=== PATIENT | female | born 1995 | race Caucasian/White ===

== ENCOUNTER 2022-06-07 10:27 | Emergency (ER) | payer OTHER ==
[~2022-06-07] VITALS: Ht 165.1 cm; Wt 57.2 kg
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
[2022-06-07] MEDS ORDERED: OLANZAPINE 10 MG VIAL IM ONE ×2 (11:00→11:02)
[2022-06-07] MEDS ORDERED: LORAZEPAM INJ 2 MG/ML VIAL IM ONE (11:00)
[2022-06-07] MEDS ORDERED: diphenhydrAMINE HCL 50 MG/ML VIAL IM ONE (11:00)
--- NOTE | 2022-06-07 11:00 | NUR ---
PT CANNOT PROVIDE URINE AT THIS TIME AND REFUSING CATHETER.
[2022-06-07] MEDS ORDERED: LORAZEPAM INJ 2 MG/ML VIAL ONE (11:02)
[2022-06-07] MEDS ORDERED: diphenhydrAMINE HCL 50 MG/ML VIAL ONE (11:02)
--- NOTE | 2022-06-07 11:04 | NUR ---
CRISIS PRIYANKA AT BEDSIDE
--- NOTE | 2022-06-07 11:20 | NUR ---
YUKO TERRAZAS [phone]
[2022-06-07 11:33] LABS: BASOPHILS # (AUTO) 0.1 K/uL (0.0-0.2); BASOPHILS % (AUTO) 1.4 % (0.0-2.0); EOSINOPHILS % (AUTO) 2.7 % (0.0-6.0); HEMATOCRIT 40 % (33-45); HEMOGLOBIN 13.3 g/dL (11.5-14.8); LYMPHOCYTES # (AUTO) 1.8 K/uL (0.8-4.8); MEAN CORPUSCULAR HGB CONC 33 g/dl (31.0-36.0); MEAN CORPUSCULAR VOLUME 91 fL (82-100); MONOCYTES # (AUTO) 0.3 K/uL (0.1-1.30); NEUTROPHILS # (AUTO) 1.6 K/uL (1.8-8.9); NEUTROPHILS % (AUTO) 42.9 % (43.0-81.0); PLATELET COUNT (AUTO) 245 K/uL (150-450); RED BLOOD CELL COUNT(AUTO) 4.42 MIL/uL (4.0-5.2); WHITE BLOOD COUNT (AUTO) 3.8 K/uL (4.3-11.0)
[2022-06-07 11:48] LABS: CALCIUM, SERUM 8.8 mg/dL (8.5-10.1); CARBON DIOXIDE 22 mmol/L (21-32); CHLORIDE 107 mmol/L (98-107); CREATININE 0.6 mg/dL (0.6-1.3); GLUCOSE 103 mg/dL (74-106); POTASSIUM 3.4 mmol/L (3.5-5.1); SODIUM SERUM 140 mmol/L (136-145); UREA NITROGEN, BLOOD 8 mg/dL (7-18)
[2022-06-07 11:53] LABS: ALANINE AMINOTRANSFERASE 16 U/L (12-78); ALBUMIN 3.6 g/dL (3.4-5.0); ALKALINE PHOSPHATASE 59 U/L (46-116); ASPARTATE AMINOTRANSFERASE 13 U/L (15-37); BILIRUBIN,DIRECT 0.1 mg/dL (0.0-0.2); BILIRUBIN,TOTAL 0.5 mg/dL (0.2-1.0)
[2022-06-07 12:01] LABS: ACETAMINOPHEN < 10 ug/ml (10-30); ALCOHOL, BLOOD < 3 mg/dL (0-0)
--- NOTE | 2022-06-07 12:16 | NUR ---
HOANG MATHEW [phone]
--- NOTE | 2022-06-07 14:28 | NUR ---
PT FATHER JUAN CARLOSFE MARIA A [phone]
--- NOTE | 2022-06-07 19:46 | NUR ---
URINE COLLECTED AND SENT TO LAB
--- NOTE | 2022-06-07 20:22 | NUR ---
JUSTIN FROM CRISIS TEAM AT PT'S BEDSIDE FOR EVAL Addendum: 06/07/22 at 2056 by GURINDER CRYSTAL FROM CRISIS TEAM AT PT'S BEDSIDE FOR EVAL
[2022-06-07 20:43] LABS: BILIRUBIN,URINE SMALL (NEGATIVE); COLOR,URINE YELLOW (YELLOW); LEUKOCYTE ESTERASE ,URINE NEGATIVE (NEGATIVE); NITRITE, URINE NEGATIVE (NEGATIVE); PROTEIN,URINE NEGATIVE (NEGATIVE); UGLUCOSE NEGATIVE (NEGATIVE); UROBILINOGEN,URINE 0.2 EU/dL (0.2)
--- NOTE | 2022-06-07 20:45 | NUR ---
Called Tello (friend) and awaiting for Tello to settup transportation for Dc. Written and verbal after care instructions given. Patient verbalizes understanding of instruction.
[2022-06-07 20:49] LABS: BACTERIA,URINE None seen /HPF (None Seen); RBC,URINE 0-2 /HPF (0-2); SQUAMOUS EPITHELIAL CELL,UR Few /HPF (None Seen); WBC,URINE 0-2 /HPF (0-3)
--- NOTE | 2022-06-07 20:59 | NUR ---
YUKO (FRIEND) WILL PICKUP PT ETA 45 MINUTES
--- NOTE | 2022-06-07 21:25 | NUR ---
Patient discharged to home in stable condition with Tello. Written and verbal after care instructions given. Patient verbalizes understanding of instruction. pt ambulatory with a steady gait
[2022-06-07 21:46] VITALS: BP 111/79
== END 2022-06-07 21:28 | disposition home or self-care (01) ==
LOC: ER 10:28
DX: F29 Unspecified psychosis not due to a substance or known physiological condition (principal); F31.9 Bipolar disorder, unspecified; F20.9 Schizophrenia, unspecified
CPT/HCPCS: 99285; 96372 ×2; 85025; 80048; 80076; 84703; 81001; 36415; 80143; 80320; 80307; J2060; J1200; J3490; G0480